=== PATIENT | female | born 1990 | race Caucasian/White ===

== ENCOUNTER 2017-05-17 21:15 | Emergency (ER) | payer MEDICAID ==
[~2017-05-17] VITALS: Ht 157.5 cm; Wt 100.0 kg
[2017-05-18 01:40] VITALS: BP 129/76
== END 2017-05-18 01:46 | disposition home or self-care (01) ==
LOC: EMS 21:16 → EDBD 21:16 → EMS 05-18 01:46
DX: S63.610A Unspecified sprain of right index finger, initial encounter (principal); S00.03XA Contusion of scalp, initial encounter; Y04.2XXA Assault by strike against or bumped into by another person, initial encounter; Y93.39 Activity, other involving climbing, rappelling and jumping off; Y92.89 Other specified places as the place of occurrence of the external cause; Y99.8 Other external cause status
CPT/HCPCS: 99284